=== PATIENT | male | born 1995 | race Asian ===

== ENCOUNTER 2018-09-09 17:03 | Emergency (ER) | payer OTHER ==
--- NOTE | 2018-09-09 17:36 | EDPHY ---
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 He notes increasing stress from school. Denies: Hallucination, alcohol or drug use, self-injurious behavior such as cutting or burning. PRIMARY CARE PROVIDER: REVIEW OF SYSTEMS: 10 systems reviewed and negative with the exception of the elements mentioned in the history of present illness PAST MEDICAL & SURGICAL HISTORY: No pertinent medical or surgical history SOCIAL HISTORY: Denies alcohol or drug use. [employer] student studying economics. PHYSICAL EXAM (Prior to examination, patient consented to physical exam, hands were washed and my usual and customary physical exam procedures followed) 1) GENERAL: Well-developed, well-nourished, alert and oriented. Appears to be in no acute distress. 2) HEAD: Normocephalic, atraumatic 3) HEENT: Pupils equal, round, reactive to light bilaterally. Sclera anicteric. 4) NECK: Full range of motion, no meningeal signs. 5) LUNGS: Clear auscultation bilaterally, no wheezes, no rhonchi, no retractions. 6) HEART: Regular rate and rhythm, no murmur, no heave, no gallop. 7) ABDOMEN: No guarding, no rebound, no focal tenderness, negative McBurney's, negative Hernandez's, negative Rovsing's, negative peritoneal sign, 8) MUSCULOSKELETAL: Moving all extremities, no focal areas of tenderness, no obvious trauma. No peripheral edema or discoloration. 9) BACK: No CVA tenderness, no midline vertebral tenderness, no fluctuance, no step-off, no obvious trauma, no visual or palpable abnormality. 10) SKIN: No rash, no petechiae. 11) Psychiatric: Patient is oriented X 3, there is no agitation. DIFFERENTIAL DIAGNOSIS: [n no particular order including but not limited to suicidal ideation, homicidal ideation, depression home - Personal History Tetanus Vaccine Date: [employer] student 2013 - Medical/Surgical History Hx Asthma: No Hx Chronic Respiratory Disease: No Hx Diabetes: No Hx Cardiac Disease: No Hx Renal Disease: No Hx Cirrhosis: No Hx Alcoholism: No Hx HIV/AIDS: No Hx Splenectomy or Spleen Trauma: No Other PMH: denies. - Social History Smoking Status: Never smoked Constitutional: Initial Vital Signs Temperature (C) 36.9 C 09/09/18 17:10 Heart Rate 69 09/09/18 17:10 Respiratory Rate 18 09/09/18 17:10 Blood Pressure 134/76 H 09/09/18 17:10 O2 Sat (%) 96 09/09/18 17:10 O2 Delivery Mode Room Air Allergies/Adverse Reactions: No Known Allergies Allergy (Unverified 07/19/15 05:10) Home Medications: Medication Instructions Recorded NK [No Known Home Meds] 09/09/18 Medical Decision Making ED Course/Re-evaluation: Care of patient under supervision of secondary supervising physician Dr Song . - Data Points Laboratory Results: Laboratory Results 09/09/18 17:25 09/09/18 17:25 09/09/18 09/09/18 09/09/18 17:25 17:25 17:18 WBC 4.97 10^3/uL 10^3/uL (3.80-9.50) RBC 5.02 10^6/uL 10^6/uL (4.40-6.38) Hgb 15.4 g/dL g/dL (13.7-17.5) Hct 44.8 % % (40.0-51.0) MCV 89.2 fL fL (81.5-99.8) MCH 30.7 pg pg (27.9-34.1) MCHC 34.4 g/dL g/dL (32.4-36.7) RDW 11.9 % % (11.5-15.2) Plt Count 234 10^3/uL 10^3/uL (150-400) MPV 11.6 fL fL (8.7-11.7) Neut % (Auto) 64.2 % % (39.3-74.2) Lymph % (Auto) 28.2 % % (15.0-45.0) Avery % (Auto) 4.8 % % (4.5-13.0) Eos % (Auto) 1.8 % % (0.6-7.6) Baso % (Auto) 0.8 % % (0.3-1.7) Nucleat RBC Rel Count 0.0 % % (0.0-0.2) Absolute Neuts (auto) 3.19 10^3/uL 10^3/uL (1.70-6.50) Absolute Lymphs (auto) 1.40 10^3/uL 10^3/uL (1.00-3.00) Absolute Monos (auto) 0.24 10^3/uL L 10^3/uL (0.30-0.80) Absolute Eos (auto) 0.09 10^3/uL 10^3/uL (0.03-0.40) Absolute Basos (auto) 0.04 10^3/uL 10^3/uL (0.02-0.10) Absolute Nucleated RBC 0.00 10^3/uL 10^3/uL (0-0.01) Immature Gran % 0.2 % % (0.0-1.1) Immature Gran # 0.01 10^3/uL 10^3/uL (0.00-0.10) Sodium 141 mEq/L mEq/L (135-145) Potassium 3.9 mEq/L mEq/L (3.5-5.2) Chloride 101 mEq/L mEq/L (97-110) Carbon Dioxide 28 mEq/l mEq/l (22-31) Anion Gap 12 mEq/L mEq/L (6-14) BUN 12 mg/dL mg/dL (7-23) Creatinine 0.8 mg/dL mg/dL (0.7-1.3) Estimated GFR > 60 Glucose 74 mg/dL mg/dL (70-100) Calcium 9.4 mg/dL mg/dL (8.5-10.4) Salicylates < 1.0 mg/dL L mg/dL (2.0-20.0) Urine Opiates Screen NEGATIVE (NEGATIVE) Acetaminophen < 10 mcg/mL L mcg/mL (10-30) Urine Barbiturates NEGATIVE (NEGATIVE) Ur Phencyclidine Scrn NEGATIVE (NEGATIVE) Ur Amphetamine Screen NEGATIVE (NEGATIVE) U Benzodiazepines Scrn NEGATIVE (NEGATIVE) Urine Cocaine Screen NEGATIVE (NEGATIVE) U Marijuana (THC) Screen NEGATIVE (NEGATIVE) Ethyl Alcohol < 10 mg/dL mg/dL (0-10) Departure - Departure Clinical Impression: Suicidal ideation, Severe major depression Condition: Fair Referrals: Patient,NotPresent [Unknown] - As per Instructions
[2018-09-09 17:40] LABS: PLATELET COUNT 234 10^3/uL (150-400)
--- NOTE | 2018-09-09 22:00 | ASMTTLCEVL ---
[facility] Evaluation - Basic Information Evaluation Start Date and 09/09/2018 08:00 PM Time Hospital Status Answers: M1 Hold 72-hr M1 Hold Start Date 09/09/2018 04:30 PM and Time Patient statement Notes: " I've been having compulsive thoughts of jumping of buildings." Narrative Notes: {Pt is a 22 year old male, [employer] student from [place]. We used a Mandarin intepreter for this entire evaluation. Pt reports for the past week his depression has worsened and his suicidal thoughts have increased in frequency. Pt reported he has had depression for"quite some time" but for the past week it has gotten worse. Pt stated he has suicidal thoughts "every day for most of the day." Pt stated in the past he would have suicidal thoughts but with less intensity.Pt reported this past week, one of his professors didn't trust one of the papers he wrote and that his depression "more obvious." Pt reports for the past 1-2 months, he has noticed a decrease in motivation and concentration. When asked if he feels hopeless, pt stated, " A little bit." Pt stated he feels his sucidal thoughts are "compulsive." Maggi at [facility] reported she has met with pt a couple of times and is concerned. 4 days ago, pt presented at [facility] and told her, " I'm going to kill myself." Maggi reports pt has limited support system here, difficulty getting to classes and low motivation. Diagnosis History Notes: Pt denied any diagnosis hx. Prior suicide attempts Notes: Pt denied any prior suicide attempts. Prior hospitalizations Notes: Pt denied ay prior hospitalizations. Treatment Responses Notes: N/A History of violence Notes: Pt denied any hx of violence. Therapist: Pt has been going to [facility] Psychiatrist: None Medications (name, dosage, route, freq uency) Notes: None Allergies/Reaction Notes: None Sleep Notes: Pt reports only getting 4-5 hours of sleep a night. Pt reports this has been going on for the past year. Appetite Notes: Pt reports a decreased appetite. Pt is unsure if he has lost any weight. Medical/Surgical history Notes: Pt reports he has been having headaches, low back discomfort, numbness in lower legs.Pt stated the numbness in his lower legs is something that recently started happening. Substance use history (frequency, intensity, his tory, duration) Notes: Pt denied any drug use. Pt stated he drinks "sometimes at green party." Family composition Notes: Pt stated his parents are in [place]. Pt reports he is an only child but has siblings and stated, " the are not the same bological parents." Need for family Answers: No participation in patient's care Family psychiatric/substance abuse history Notes: Pt denied any family psychiatric/substance abuse hx. Developmental history Notes: Pt grew up in [place]. He has been in the [place] for 4 years. LImited information provided regarding childhood developement. Abuse concerns Answers: None Marital status/children Notes: Unmarried, no children. Living situation Notes: Pt lives in [place], no children. Sexual history/orientation Notes: Unable to assess. 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 Work history Notes: Pt is not working Notes: None Legal Notes: Pt denied any legal problems. Latter-Day/Spiritual Notes: None identified. Leisure Notes: Pt stated he enjoys hanging out with friends, playing games and watching movies. Collateral Notes: Naa Patient's strengths Answers: Intelligent (Please select at least TWO strengths): Willingness TLC Evaluation - Mental Status Exam Appearance: Answers: Appropriate Clean Eye Contact: Answers: Good/Direct Mood: Answers: Sad Affect: Answers: Appropriate Behavior: Answers: Cooperative Speech: Answers: Relevant Logical Clear Coherent Thought Process: Answers: Organized Oriented Alert Intact Insight: Answers: Good Judgement: Answers: Fair Depression Answers: Difficulty Concentrating Signs/Symptoms: Diminished Interest Diminished Pleasure Hopelessness Sad Mood Withdrawn Hallucinations: Answers: None Pt reported to have Answers: No suicidal/self-injuring ideation/behavior? Pt reported to be making Answers: Yes suicidal/self-injuring threats? Pt reported to have Answers: No aggression/assault ideation/behavior? Pt reported to be making Answers: No aggression/assault threats? Pt exhibits inability to Answers: No care for self/grave disability? Ideation/behavior is Answers: Yes chronic? Patient has a specific Answers: Yes plan? Pt has access to means to Answers: Yes execute the plan? Ideation involves Answers: Yes serious/lethal intent? Ideation has Answers: No delusional/hallucinatory content? History of Answers: No suicidal/self-injuring ideation, behavior, or threats? History of Answers: No aggressive/assaultive ideation, behavior, or threats? History of serious Answers: No physical harm to self/others while in treatment setting? TLC Evaluation - Suicide/Homicide Risk Suicide Risk Factors: Answers: < 20 or > 40 Years of Age Inadequate Social Support Homicide/violence risk Answers: None factors: Current Suicidal Answers: Yes Ideation? Current Suicide Ideation Pt reports having SI every day for most of the day/ Frequency: Current Suicidal Ideation Answers: Yes in the Past 48 Hours? Current Suicidal Ideation Answers: Yes in the Past Month? Current Suicidal Answers: Yes Ideation, Worst Ever? Suicide Internal Answers: Absence of Psychosis Protective Factors: Suicide External Answers: Social Support Protective Factors: Ranking of patient's Answers: Severe suicidal risk: Ranking of patient's Answers: Low homicidal risk: TLC Evaluation - Wrap-up AXIS I Diagnosis (include DSM-V and ICD-10 codes), must also be entered in [employer], which is the source of truth. Notes: Major Depressive Disorder, single episode, severe 296.23 (F32.2) In consultation with [facility] ED physician, Carla Song MD concurred that pt appears to meet 27-65 criteria requiring psychiatric hospitalization as pt appears to be at risk of harm to self due to a mental illness condition. Pt was read the Patient Rights and Responsibilities Statement with the help of a Mandarin produce manager on 09/09/18 at 21:00 , original placed on chart, and was given photocopy of Rights. Pt signed the Patient Rights. Pt was given the 3N prohibited belongings list while in the ED. Evaluation End Date and 09/09/2018 10:00 PM Time (HH:CHASIDY): Date Signed: 09/09/2018 10:00 PM Electronically Signed By:Jennifer Stewart
--- NOTE | 2018-09-09 23:26 | ASMTTCLDSP ---
TLC Discharge Disposition Disposition: Answers: Transfer Discharge Concerns/Recommendations: Notes: In consultation with [facility] ED physician, Carla Song MD concurred that pt appears to meet 27-65 criteria requiring psychiatric hospitalization as pt appears to be at risk of harm to self due to a mental illness condition. Pt was read the Patient Rights and Responsibilities Statement with the help of a Mandarin laundrette owner on 09/09/18 at 21:00 , original placed on chart, and was given photocopy of Rights. Pt signed the Patient Rights. Pt was given the 3N prohibited belongings list while in the ED. For Transfers, Accepting [facility] Facility: For Transfers, Accepting Tyler Whelan NP Psychiatrist: For Transfers, Reason 3N at cap Patient is Being Transferred: Date Signed: 09/09/2018 11:25 PM Electronically Signed By:Jennifer Stewart
[2018-09-10 00:46] VITALS: BP 117/59
== END 2018-09-10 00:47 ==
DX: R45.851 Suicidal ideations (principal); F32.2 Major depressive disorder, single episode, severe without psychotic features
CPT/HCPCS: 80305; G0480